=== PATIENT | female | born 1945 | race Caucasian/White ===

== ENCOUNTER 2017-09-03 16:15 | Emergency (ER) | payer OTHER, MEDICARE ==
[~2017-09-03] VITALS: Ht 170.2 cm; Wt 86.2 kg
[2017-09-03 16:42] VITALS: BP_SYST 162
--- NOTE | 2017-09-03 17:05 | NUR ---
Patient to ER bed H2 to gown for evaluation. Side rails up. Report given to Kaur
[2017-09-03] MEDS ORDERED: LIDOCAINE 1%, 20 ML MDV 20 ML ONE (17:22)
[2017-09-03] MEDS ORDERED: MORPHINE 4 MG/ML INJ. SYRINGE IM ONE (17:45)
[2017-09-03] MEDS ORDERED: DIPHENHYDRAMINE INJ 50 MG/ML VIAL IM ONE (17:45)
[2017-09-03] MEDS ORDERED: DIPH-TET-PERTUS Vaccine 0.5 ML VIAL (ADACEL) IM ONE (17:45)
[2017-09-03] MEDS ORDERED: LIDOCAINE 1% 10 MG/ML, 20 ML MDV IJ ONE (17:45)
[2017-09-03] MEDS ORDERED: BACITRACIN 1 GM OINT TP ONE (17:45)
[2017-09-03] MEDS ORDERED: DIPH-TET Vacc 0.5 ML VIAL I.M. ONE (17:45)
--- NOTE | 2017-09-03 18:00 | NUR ---
PATIENT CAMEBACK FROM RADIOLOGY DEPARTMENT. ALERT, ORIENTED, LEFT PINKY FINGER STOCK WHEN WINDOW CLOSING. LACERATION NOTED, WOUND CLEANSE EARLIER.. SCHEDULED FOR SUTURE. VITAL SIGN STABLE.
--- NOTE | 2017-09-03 18:22 | NUR ---
ER MARISSA JEFFERS at bedside examining patient.
[2017-09-03 19:45] VITALS: BP_SYST 146
--- NOTE | 2017-09-03 19:45 | NUR ---
Patient given written and verbal discharge instructions and verbalizes understanding. ER MD discussed with patient the results and treatment provided. Patient in stable condition. ID arm band removed. Rx ofBacitracin, Tylenol, Keflex, [place] given. Patient educated on pain management and to follow up with PMD. Pain Scale 0. Opportunity for questions provided and answered.
== END 2017-09-03 19:45 | disposition home or self-care (01) ==
LOC: SED 16:15
DX: S62.667A Nondisplaced fracture of distal phalanx of left little finger, initial encounter for closed fracture (principal); S61.217A Laceration without foreign body of left little finger without damage to nail, initial encounter; I10 Essential (primary) hypertension; Z88.5 Allergy status to narcotic agent; Z90.710 Acquired absence of both cervix and uterus; W23.0XXA Caught, crushed, jammed, or pinched between moving objects, initial encounter; Y93.89 Activity, other specified; Y92.89 Other specified places as the place of occurrence of the external cause; Y99.8 Other external cause status
CPT/HCPCS: 11730; 29130; 73140; 90471; 90714; 96372; 99284; J1200; J2001; J2270